=== PATIENT | male | born 1950 | race Caucasian/White ===

== ENCOUNTER 2020-02-24 07:43 | Observation (INO) | payer MEDICARE, SELFPAY ==
[2020-02-24] VITALS (13 sets, daily range): BP systolic 135–170; BP diastolic 71–97; PULSE 66–86; RESP 16–18; TEMP 36.4–37.2; O2SAT 96–100; BMI 26.2
[2020-02-24] MEDS: Lactated Ringers 1,000 ML 125 ML IV (06:05)
[2020-02-24] MEDS: Gabapentin 600 MG Tablet PO (06:05)
[2020-02-24] MEDS: Acetaminophen 500 MG Tablet 1000 MG PO ×3 (06:05→20:41)
[2020-02-24 06:21] LABS: Bedside Glucose 98 mg/dL (70-110)
[2020-02-24 06:39] LABS: Magnesium 1.9 mg/dL (1.6-2.6)
[2020-02-24 06:43] LABS: International Normalized Ratio 0.9; Partial Thromboplast Time 26.6 Seconds (24.1-36.2); Prothrombin Time (Protime)PT. 12.1 SECONDS (11.7-14.9)
--- NOTE | 2020-02-24 07:30 | KNEE_PTH ---
PATIENT: KEVIN EDDY LOC: MS3 U#:[id number] AGE/SX: 70/M ROOM: [facility] [place] RE02/24/[address]: Dr. Alex Huber DO : 1950 BED: 1 DIS: 02/25/2020 SPEC #: [id number] RECD: 02/24/20 09:47 STATUS: ERIC REQ #: [id number] SUHAS: 02/24/20 07:[address]: Alex Huber DEPT: SURGICAL PATHOLOGY RECD BY: Jeana Kan ENTERED: 02/24/20 10:22 SP TYPE: TOTAL KNEE OTHR DR: Marisela Sheridan, STOCK CONTROL CLERK-C Alexander Gonzalez PA-C Tissues: Knee, NOS Procedures: Decalcification bone/plaque Surgery Specimen Level IV HEADER OPERATION: ERAS, total knee replacement robotic arm assist PRE-OP DIAGNOSIS: Primary osteoarthritis right knee TISSUE SUBMITTED: Bone and soft tissue right knee MICROSCOPIC DIAGNOSIS Bone and soft tissue of right knee, total knee resection: Severe degenerative joint disease. Mild synovial hyperplasia with associated mild chronic inflammation. AM:dm 02/27/20 MICROSCOPIC DESCRIPTION Slides are reviewed. GROSS DESCRIPTION Received is one container designated bone and soft tissue right knee. The specimen consists of multiple fragments of wills-yellow bone measuring in aggregate 10 x 10 x 3 cm. Also in the specimen container are multiple fragments of yellow-white soft tissue measuring in aggregate 8 x 9 x 3 cm. A number of bony fragments contain articular surfaces consistent with tibial plateau and femoral condyle and displaying prominent osteophyte formation, eburnation, and bone erosion. Winding Machine Operator sections are submitted in two cassettes as follows: 1 - soft tissue, 2 - bone after decalcification. / SJ:dm 02/24/20 TC:3 [facility]: [id number]
--- NOTE | 2020-02-24 09:28 | PCM.OPRPT ---
Report of Operation Date of Procedure: 02/24/20 Pre-Operative Diagnosis: OA right knee Post-Operative Diagnosis: same Surgery/Procedure Performed:: Right TKR set up and charger: Claude Zamora Type of Anesthesia:: Spinal Anesthesiologist: Jesus Chaudhary Specimen's removed: bone and soft tissue Estimated Blood Loss (mL): 20 cc - Admit VTE Documentation VTE Present on Admission: No VTE Mechan Device Prophylaxis: SCD's, Thigh High YENNY Hose VTE Pharm Prophylaxis ordered?: Yes
[2020-02-24 10:32] LABS: Hematocrit 37.8 % (40-54); Hemoglobin 12.3 g/dL (13.0-16.5); Mean Corp Hgb Conc 32.5 g/dL (32-36); Mean Corpuscular Hgb 30.1 pg (27.0-32.0); Mean Corpuscular Volume 92.4 fL (80-94); Mean Platelet Vol. 8.5 fl (6.2-12.0); Platelet Count 198 K/mm3 (150-450); RBC Distribution Width CV 12.4 % (11.6-14.6); RBC Distribution Width SD 42.3 fl (35.1-43.9); Red Blood Count 4.09 M/mm3 (4.6-6.2); White Blood Count 10.5 K/mm3 (4.4-11.0)
[2020-02-24 10:50] LABS: Anion Gap 5 (5-15); BUN 18 mg/dL (7-18); BUN/Creat Ratio 14.8 RATIO (10-20); Calcium,Total 8.8 mg/dL (8.5-10.1); Chloride 108 mmol/L (98-107); Creatinine, Serum 1.22 mg/dL (0.70-1.30); EST Glomerular Filtration Rate 62 mL/min (>60); Est Glom Filt Rate - Afr Amer 75 mL/min (>60); Estimated Creatinine Clearance 52.95 ml/min; Glucose 135 mg/dL (74-106); Potassium 3.9 mmol/L (3.5-5.1); Sodium Level 141 mmol/L (136-145)
--- NOTE | 2020-02-24 11:10 | RAD_ITS ---
STUDY: X-RAY - RIGHT KNEE REASON FOR EXAM: Male, 70 years old. POST OP TOTAL KNEE TECHNIQUE: 2 view(s) of the knee. COMPARISON: None. FINDINGS: Status post total knee arthroplasty. Surgical hardware intact/well aligned. No acute complications. Postoperative soft tissues with staple line. RAD/Knee 1 or 2 Views IMPRESSION: Uncomplicated right knee arthroplasty Electronically Signed: Kade Leyva DO at 11:56 EST Tel , Service support ,
[2020-02-24] MEDS: proMETHazine 25 MG/ML Syringe 12.5 MG IM (11:56)
[2020-02-24] MEDS: Ferrous Sulfate 325 MG Tablet PO (14:46)
[2020-02-24] MEDS: Aspirin 81 MG TAB.CHEW PO (17:19)
[2020-02-24] MEDS: Senna/Docusate Sodium 1 Tablet 2 TABLET PO (20:41)
[2020-02-24] MEDS: Magnesium Chloride 64 MG Delay Rel.Tablet 128 MG PO (20:41)
[2020-02-24] MEDS: Pantoprazole Sodium 40 MG Tablet PO (20:41)
[2020-02-25 03:55] VITALS: BP 130/76; PULSE 81; RESP 16; TEMP 36.8; O2SAT 98
[2020-02-25] MEDS: Acetaminophen 500 MG Tablet 1000 MG PO ×2 (05:56→14:48)
[2020-02-25 07:08] LABS: Hematocrit 34.4 % (40-54); Hemoglobin 11.4 g/dL (13.0-16.5); Mean Corp Hgb Conc 33.1 g/dL (32-36); Mean Corpuscular Hgb 30.3 pg (27.0-32.0); Mean Corpuscular Volume 91.5 fL (80-94); Mean Platelet Vol. 8.4 fl (6.2-12.0); Platelet Count 193 K/mm3 (150-450); RBC Distribution Width CV 12.6 % (11.6-14.6); RBC Distribution Width SD 42.1 fl (35.1-43.9); Red Blood Count 3.76 M/mm3 (4.6-6.2); White Blood Count 14.6 K/mm3 (4.4-11.0)
[2020-02-25 07:29] LABS: Anion Gap 5 (5-15); BUN 27 mg/dL (7-18); BUN/Creat Ratio 20.8 RATIO (10-20); Calcium,Total 9.1 mg/dL (8.5-10.1); Chloride 108 mmol/L (98-107); EST Glomerular Filtration Rate 58 mL/min (>60); Est Glom Filt Rate - Afr Amer 70 mL/min (>60); Estimated Creatinine Clearance 49.69 ml/min; Glucose 117 mg/dL (74-106); Potassium 3.9 mmol/L (3.5-5.1); Sodium Level 139 mmol/L (136-145)
[2020-02-25] MEDS: Ferrous Sulfate 325 MG Tablet PO (07:59)
[2020-02-25] MEDS: Aspirin 81 MG TAB.CHEW PO (08:00)
[2020-02-25] MEDS: Magnesium Chloride 64 MG Delay Rel.Tablet 128 MG PO (08:00)
[2020-02-25] MEDS: Pantoprazole Sodium 40 MG Tablet PO (08:00)
[2020-02-25] MEDS: Senna/Docusate Sodium 1 Tablet 2 TABLET PO (08:00)
[2020-02-25 08:05] VITALS: BP 153/71; PULSE 85; RESP 18; TEMP 36.9; O2SAT 96
--- NOTE | 2020-02-25 08:08 | PN.ORTHO_ITS ---
Subjective: Pt. doing well. Pain 04/22. No N/T/P. - Physical Exam Vitals/I&O's: Vital Signs Temp Pulse Resp BP Pulse Ox 98.2 F 81 16 130/76 H 98 02/25/20 03:55 02/25/20 03:55 02/25/20 03:55 02/25/20 03:55 02/25/20 03:55 Oxygen Flow Rate (L/min) 6 Oxygen Delivery Method Room Air Weight: 172 lb 9.951 oz Body Mass Index (BMI) 26.2 Intake and Output for Last 24 Hours 02/23/20 02/24/20 02/25/20 23:59 23:59 23:59 Intake Total 2038.5 / 2438.5 1054 / 1054 Output Total 100 / 100 Balance 1938.5 / 2338.5 1054 / 1054 General: Alert, Oriented x3, Cooperative, No apparent distress Extremities: No clubbing, No cyanosis, No edema, Capillary Refill Less than 3 Seconds, No Calf Tenderness Skin: Incision - stable Laboratory Results 02/24/20 10:25: WBC 10.5, RBC 4.09 L, Hgb 12.3 L, Hct 37.8 L, MCV 92.4, MCH 30.1, MCHC 32.5, RDW Std Deviation 42.3, RDW Coeff of Andrez 12.4, Plt Count 198, MPV 8.5 02/24/20 10:25: Sodium 141, Potassium 3.9, Chloride 108 H, Carbon Dioxide 28.0, Anion Gap 5, BUN 18, Creatinine 1.22, Estim Creat Clear Calc 52.95, Est GFR (MDRD) Af Amer 75, Est GFR (MDRD) Non-Af 62, BUN/Creatinine Ratio 14.8, Glucose 135 H, Calcium 8.8 02/25/20 06:59: WBC 14.6 H, RBC 3.76 L, Hgb 11.4 L, Hct 34.4 L, MCV 91.5, MCH 30.3, MCHC 33.1, RDW Std Deviation 42.1, RDW Coeff of Andrez 12.6, Plt Count 193, MPV 8.4 02/25/20 06:59: Sodium 139, Potassium 3.9, Chloride 108 H, Carbon Dioxide 26.0, Anion Gap 5, BUN 27 H, Creatinine 1.30, Estim Creat Clear Calc 49.69, Est GFR (MDRD) Af Amer 70, Est GFR (MDRD) Non-Af 58 L, BUN/Creatinine Ratio 20.8 H, Glucose 117 H, Calcium 9.1 Current Medications Acetaminophen (Acetaminophen 500 Mg Tablet) 1,000 mg PO Q8 [facility] Last Admin: 02/25/20 05:56 Dose: 1,000 mg Documented by: Aspirin (Aspirin 81 Mg Tab.Chew) [facility] Last Admin: 02/25/20 08:00 Dose: 81 mg Documented by: Ferrous Sulfate (Ferrous Sulfate 325 Mg Tablet) 325 [facility] Last Admin: 02/25/20 07:59 Dose: 325 mg Documented by: Magnesium Chloride (Magnesium Chloride 64 Mg Delay Rel.Tablet) 128 mg PO BID [facility] Last Admin: 02/25/20 08:00 Dose: 128 mg Documented by: Ondansetron HCl (Ondansetron 4 Mg/2 Ml Vial) 4 mg IV Q8H PRN PRN PRN Reason: NAUSEA Oxycodone HCl (Oxycodone 5 Mg Tablet) 5 - 10 mg PO Q4H PRN PRN PRN Reason: Pain Score 4-10 Pantoprazole Sodium (Pantoprazole Sodium 40 Mg Tablet) 40 mg PO BID [facility] Last Admin: 02/25/20 08:00 Dose: 40 mg Documented by: Promethazine HCl (Promethazine 25 Mg/Ml Syringe) 12.5 mg IM Q6H PRN PRN; Protocol PRN Reason: NAUSEA/VOMITING Last Admin: 02/24/20 11:56 Dose: 12.5 mg Documented by: Senna/Docusate Sodium (Senna/Docusate Sodium 1 Tablet) 2 tablet PO BID [facility] Last Admin: 02/25/20 08:00 Dose: 2 tablet Documented by: Sodium Chloride (0.9% Saline Lock 10 Ml Syringe) 10 - 40 ml IV UD PRN PRN Reason: SALINE FLUSH Medical Necessity - Tobacco Use Smoking Status: Never smoker Tobacco Use: Non-smoker Assessment/Plan s/p Right TKR Home after PT today
--- NOTE | 2020-02-25 08:11 | PCM.DC.TKR ---
Discharge Diet: No Restrictions Discharge Activity: May Not Drive, May Shower May shower in (days): 2 May resume sexual activity in: No Restrictions Ice area for (Minutes): 30 Weight Bearing Status: Weight bearing as tolerated Elevate: Right Leg Call your doctor if your incision/area has: Continuous Slow Oozing, Sudden Increased Bleeding, Increased Pain/ Swelling, Increased Redness, Foul Smelling Discharge, Swelling at the incision site Call your doctor if you observe: Fever of 101 or Higher, Coldness, Increased Pain, Numbness or Tingling Suture Line Care: Avoid Pulling/Pushing Change Dressing in (Days):: 5 Cleanse incision/area with: Soap & Water Allergies/Adverse Reactions: Allergies Penicillins Allergy (Verified 02/24/20 05:41) Rash Medications to take at Discharge Iron Carbonyl [Feosol] 65 mg PO BID 02/07/20 Magnesium Oxide [Magnesium] 800 mg PO DAILY 02/07/20 Pantoprazole Sodium [Protonix] 40 mg PO BID 02/07/20 Potassium Gluconate [Potassium] 99 mg PO DAILY 02/07/20 Acetaminophen [Tylenol] 1,000 mg PO Q8 tab 02/25/20 Aspirin [Aspirin, Baby] 81 mg PO BIDCM tab.chew 02/25/20 Oxycodone [Oxyir] 5 - 10 mg PO Q4H PRN PRN #60 tab 02/25/20 Senna/Docusate Sodium [Senokot-S] 2 tab PO BID tab 02/25/20 The following prescriptions were given: Oxycodone [Oxyir] 5 - 10 mg PO Q4H PRN PRN #60 tab PRN Reason: Pain Score 4-10 Prescription Printed Primary Care Physician: Marisela Sheridan SOFTWARE DEVELOPER MID LEVEL, SOFTWARE DEVELOPER MID LEVEL-C [Primary Care Provider] - Test Results: Test results from this visit will be discussed in further detail at your follow-up appointment, if applicable. Proposed Discharge Date: 02/25/20
--- NOTE | 2020-02-25 10:35 | CASEMGMT ---
DEENA RILEY Face to Face with patient for initial transition planning/care coordination assessment. DEENA RILEY introduced self and role at [facility]. Patient sitting in chair, alert and oriented. Patient willing to participate in assessment and is able to answer all questions appropriately. Care providers, pharmacy, and demographics verified. Patient wishes to discharge home and is setup with [facility] for outpatient therapy. Patient states he has no further needs or concerns at this time. CM to follow for discharge planning needs that may arise. PCP: Marisela Sheridan NP Specialists: sanjiv Huber Pharmacy: [facility] retail at discharge Insurance: [employer] [facility] Prescription Benefit: yes Living Will/HPOA: none LNOK: Living Arrangements: Patient lives with in a single story home with 1 step to enter the home. Patient states he was independent at home prior to surgery. Transportation: DME/HHC: Patient states he has raised toilet, cane, walker, and grab bars at home. Patient is scheduled for outpatient therapy at [facility] for Monday CADE form completed with patient at this time. DEENA RILEY explained CADE Form, patient signed. Signed CADE form placed in chart. Patient provided with copy of signed CADE form. Disposition Plan: Patient to discharge home with outpatient therapy, family support, and follow-up plans in place. Lisa HAN, RN, CM
--- NOTE | 2020-02-25 14:09 | PHA.DC.MC ---
Pharmacy Service has performed discharge medication reconciliation and counseling for this patient. 1. ACETAMINOPHEN 1000MG PO Q8H 2. ASPIRIN 81MG PO BIDCM 3. OXYCODONE 5-10MG PO Q4H PRN PAIN 4-10 4. SENNA/DOCUSATE 2T PO BID The patient's discharge medication list was reviewed for discrepancies and discrepancies were resolved. Home Medications Iron Carbonyl [Feosol] 65 mg PO BID 02/07/20 Magnesium Oxide [Magnesium] 800 mg PO DAILY 02/07/20 Pantoprazole Sodium [Protonix] 40 mg PO BID 02/07/20 Potassium Gluconate [Potassium] 99 mg PO DAILY 02/07/20 Acetaminophen [Tylenol] 1,000 mg PO Q8 tab 02/25/20 Aspirin [Aspirin, Baby] 81 mg PO BIDCM tab.chew 02/25/20 Oxycodone [Oxyir] 5 - 10 mg PO Q4H PRN PRN #60 tab 02/25/20 Senna/Docusate Sodium [Senokot-S] 2 tab PO BID tab 02/25/20 The patient was counseled on the following discharge medications and changes in medications for homegoing were reviewed. The Reason for Use, instructions for use, and potential side effects were reviewed for all new medications. The patient's questions regarding all of their medications were answered. The patient was able to verbally demonstrate an understanding of their discharge medications.
[2020-02-25 14:45] VITALS: BP 163/82; PULSE 89; RESP 16; TEMP 36.8; O2SAT 97
== END 2020-02-25 15:07 | disposition home or self-care (01) ==
LOC: MS3 02-25 07:14
PROVIDERS: Anesthesiology; Admitting Provider Orthopaedic Surgery; PCP Nurse Practitioner Family; Referring Provider Orthopaedic Surgery; Visit Provider Orthopaedic Surgery
PROC: 0SRC0JZ Replacement of Right Knee Joint with Synthetic Substitute, Open Approach (ICD-10-PCS; CPT 27447; principal; 2020-02-24 07:00)
DX: M17.11 Unilateral primary osteoarthritis, right knee (principal); Z20.828 Contact with and (suspected) exposure to other viral communicable diseases; Z79.899 Other long term (current) drug therapy; H54.7 Unspecified visual loss; D64.9 Anemia, unspecified; K21.9 Gastro-esophageal reflux disease without esophagitis
CPT/HCPCS: 01400; 27447; 64447; S2900; 36415; 73560; 80048; 82962; 83735; 85027; 85610; 85730; 87426; 88305; 88311; 96365; 96366; 96372; 97110; 97116; 97161; 97166; 97530; 97535; 99218; 99251; C1776; C9803; J7120; G0378; G0379; G0463; J2405

== ENCOUNTER → 2023-11-30 | Outpatient (CLI) | payer MEDICARE, SELFPAY ==
[2023-11-30 12:43] LABS: Absolute Lymphocyte Count 1.93 X10^3/uL (0.83-4.51); Basophil# 0.03 X10^3/uL; Basophil% 0.5 % (0-1); Eosinophil# 0.46 X10^3/uL; Eosinophils% 7.5 % (0-5); Hematocrit 41.5 % (40-54); Hemoglobin 13.6 g/dL (13.0-16.5); Lymphocyte # 1.93 X10^3/ul (0.83-4.51); Lymphocyte % 31.6 % (19-41); Mean Corp Hgb Conc 32.8 g/dL (32-36); Mean Corpuscular Hgb 30.2 pg (27.0-32.0); Mean Platelet Vol. 9.4 fl (6.2-12.0); Monocyte# 0.65 X10^3/uL; Monocyte% 10.6 % (0-10); NRBC Flagged by Analyzer 0 % (0-5); Neutrophil # 3.02 X10^3/uL (2.7-7.7); Neutrophil % 49.5 % (47-70); Platelet Count 205 K/mm3 (150-450); RBC Distribution Width CV 12.7 % (11.6-14.6); RBC Distribution Width SD 42.9 fl (35.1-43.9); Red Blood Count 4.51 M/mm3 (4.6-6.2); White Blood Count 6.1 K/mm3 (4.4-11.0)
[2023-11-30 12:51] LABS: Vitamin B12 146 pg/mL (211-911)
[2023-11-30 13:00] LABS: ALB/GLOB Ratio 1.1 RATIO (0.9-2.4); AST(SGOT) 27 U/L (15-37); Alanine Aminotransfer ALT/SGPT 26 U/L (16-61); Albumin, Serum 3.6 g/dL (3.2-5.0); Alkaline Phosphatase 86 U/L (45-117); Anion Gap 5 (5-15); BUN 29 mg/dL (7-18); BUN/Creat Ratio 21.5 RATIO (10-20); Chloride 110 mmol/L (98-107); Cholesterol 158 mg/dL (200); Creatinine, Serum 1.35 mg/dL (0.70-1.30); EST Glomerular Filtration Rate 55 mL/min (>60); Est Glom Filt Rate - Afr Amer 66 mL/min (>60); Ferritin 249 ng/mL (26-388); Globulin 3.4 g/dL (2.2-4.2); Glucose 102 mg/dL (74-106); High Density Lipoprotein 49 mg/dL; Iron 75 ug/dL (65-175); Iron Binding Capacity,Total 287 ug/dL (250-450); Potassium 5.1 mmol/L (3.5-5.1); Sodium Level 141 mmol/L (136-145); Triglycerides 96 mg/dL; Very Low Density Lipoprotein 19 mg/dL (5-40)
== END | disposition home or self-care (01) ==
LOC: MFPLAB 10:30
PROVIDERS: PCP Family Medicine; Visit Provider Family Medicine
DX: I10 Essential (primary) hypertension (principal); E78.5 Hyperlipidemia, unspecified; E53.8 Deficiency of other specified B group vitamins; E61.1 Iron deficiency
CPT/HCPCS: 36415; 80053; 80061; 82607; 82728; 82746; 83540; 83550; 83735; 84443; 85025

== ENCOUNTER → 2024-01-25 | Outpatient (CLI) | payer MEDICARE, SELFPAY ==
[2024-01-25 12:19] LABS: Absolute Lymphocyte Count 1.99 X10^3/uL (0.83-4.51); Absolute Neutrophil Count 3.4 X10^3/uL (2.0-7.7); Basophil# 0.05 X10^3/uL; Basophil% 0.8 % (0-1); Eosinophil# 0.52 X10^3/uL; Eosinophils% 7.9 % (0-5); Hematocrit 41.9 % (40-54); Hemoglobin 13.9 g/dL (13.0-16.5); Lymphocyte # 1.99 X10^3/ul (0.83-4.51); Lymphocyte % 30.3 % (19-41); Mean Corp Hgb Conc 33.2 g/dL (32-36); Mean Corpuscular Hgb 30.5 pg (27.0-32.0); Mean Corpuscular Volume 91.9 fL (80-94); Mean Platelet Vol. 9.1 fl (6.2-12.0); Monocyte# 0.65 X10^3/uL; Monocyte% 9.9 % (0-10); NRBC Flagged by Analyzer 0 % (0-5); Neutrophil # 3.35 X10^3/uL (2.7-7.7); Neutrophil % 50.9 % (47-70); Platelet Count 216 K/mm3 (150-450); RBC Distribution Width CV 12.8 % (11.6-14.6); RBC Distribution Width SD 42.8 fl (35.1-43.9); Red Blood Count 4.56 M/mm3 (4.6-6.2); White Blood Count 6.6 K/mm3 (4.4-11.0)
[2024-01-25 13:10] LABS: Anion Gap 4 (5-15); BUN 22 mg/dL (7-18); BUN/Creat Ratio 18.5 RATIO (10-20); Calcium,Total 8.9 mg/dL (8.5-10.1); Chloride 110 mmol/L (98-107); Creatinine, Serum 1.19 mg/dL (0.70-1.30); EST Glomerular Filtration Rate 63 mL/min (>60); Est Glom Filt Rate - Afr Amer 76 mL/min (>60); Ferritin 237 ng/mL (26-388); Glucose 108 mg/dL (74-106); Iron 65 ug/dL (65-175); Iron Binding Capacity,Total 303 ug/dL (250-450); Sodium Level 143 mmol/L (136-145)
[2024-01-30 16:45] LABS: Hemoglobin A1c 5.7 % (3.8-5.6)
== END | disposition home or self-care (01) ==
LOC: MFPLAB 10:42
PROVIDERS: PCP Family Medicine; Referring Provider Family Medicine; Visit Provider Family Medicine
DX: E61.1 Iron deficiency (principal); R94.4 Abnormal results of kidney function studies; R73.09 Other abnormal glucose
CPT/HCPCS: 36415; 80048; 82728; 83036; 83540; 83550; 85025

== ENCOUNTER → 2024-03-22 | Outpatient (CLI) | payer MEDICARE, SELFPAY ==
[2024-03-22 13:50] LABS: Bacteria 0 SEEN /hpf (None Seen); Mucous, Urine 0 SEEN /hpf (<or=2+); Red Blood Cells-Urine 0 SEEN /hpf (0-5); Squamous Epithelial Cells - UA 0 SEEN /hpf (0-5); White Blood Cells 0 SEEN /hpf (0-5)
[2024-03-22 17:57] LABS: Absolute Lymphocyte Count 2.04 X10^3/uL (0.83-4.51); Absolute Neutrophil Count 3.4 X10^3/uL (2.0-7.7); Basophil# 0.05 X10^3/uL; Basophil% 0.7 % (0-1); Eosinophil# 0.43 X10^3/uL; Eosinophils% 6.4 % (0-5); Hemoglobin 14.6 g/dL (13.0-16.5); Hemoglobin A1c 5.4 % (3.8-5.6); Lymphocyte # 2.04 X10^3/ul (0.83-4.51); Lymphocyte % 30.4 % (19-41); Mean Corp Hgb Conc 32.4 g/dL (32-36); Mean Corpuscular Volume 92.4 fL (80-94); Mean Platelet Vol. 9.6 fl (6.2-12.0); Monocyte# 0.75 X10^3/uL; Monocyte% 11.2 % (0-10); NRBC Flagged by Analyzer 0 % (0-5); Neutrophil # 3.43 X10^3/uL (2.7-7.7); Neutrophil % 51.2 % (47-70); Platelet Count 210 K/mm3 (150-450); RBC Distribution Width CV 12.5 % (11.6-14.6); RBC Distribution Width SD 42.7 fl (35.1-43.9); Red Blood Count 4.87 M/mm3 (4.6-6.2); White Blood Count 6.7 K/mm3 (4.4-11.0)
[2024-03-22 17:58] LABS: AST(SGOT) 23 U/L (15-37); Alanine Aminotransfer ALT/SGPT 32 U/L (16-61); Albumin, Serum 3.8 g/dL (3.2-5.0); Alkaline Phosphatase 87 U/L (45-117); Anion Gap 4 (5-15); BUN 25 mg/dL (7-18); BUN/Creat Ratio 20.7 RATIO (10-20); Calcium,Total 9.3 mg/dL (8.5-10.1); Chloride 108 mmol/L (98-107); Cholesterol 155 mg/dL (200); Creatinine, Serum 1.21 mg/dL (0.70-1.30); EST Glomerular Filtration Rate 62 mL/min (>60); Est Glom Filt Rate - Afr Amer 75 mL/min (>60); Ferritin 210 ng/mL (26-388); Glucose 77 mg/dL (74-106); High Density Lipoprotein 52 mg/dL; Iron 71 ug/dL (65-175); Magnesium 2.3 mg/dL (1.6-2.6); Protein, Total 7.8 g/dL (6.4-8.2); Sodium Level 138 mmol/L (136-145); Triglycerides 92 mg/dL; Very Low Density Lipoprotein 18 mg/dL (5-40)
[2024-03-22 17:59] LABS: Vitamin B12 751 pg/mL (211-911); Vitamin D,25 Hydroxy 34.8 ng/mL
[2024-03-22 18:00] LABS: PTHIN 92.2 pg/mL (18.4-80.1)
[2024-03-22 18:31] LABS: Color, Urine Yellow (Yellow); Glucose, Dipstick Normal (Normal); Ketone-Dipstick Negative (Negative); Leukocyte Esterase-Dipstick Negative /ul (Negative); Nitrite-Dipstick Negative (Negative); Occult Blood-Urine Negative /ul (Negative); Protein-Dipstick Negative (Negative); Specific Gravity, Urine 1.015 (1.002-1.030); Urine Bilirubin Dipstick Negative (Negative); Urine Clarity Clear (Clear); Urine Urobilinogen Normal (Normal)
[2024-03-22 18:40] LABS: Protein, Urine (Random) 15.4 mg/dL (<11.9); Protein:Creat Ratio 114 mg/g CRE (0-200)
== END | disposition home or self-care (01) ==
PROVIDERS: PCP Family Medicine; Referring Provider Family Medicine; Visit Provider Family Medicine
DX: I12.9 Hypertensive chronic kidney disease with stage 1 through stage 4 chronic kidney disease, or unspecified chronic kidney disease (principal); N18.30 Chronic kidney disease, stage 3 unspecified; R73.02 Impaired glucose tolerance (oral); E78.5 Hyperlipidemia, unspecified; E61.1 Iron deficiency
CPT/HCPCS: 36415; 80053; 80061; 81001; 82306; 82570; 82607; 82728; 83036; 83540; 83735; 83970; 84156; 85025

== ENCOUNTER → 2024-07-12 | Outpatient (CLI) | payer MEDICARE, SELFPAY ==
[2024-07-12 12:32] LABS: PSA,Total - Annual Screen 2.77 ng/mL (0.02-4.00)
== END | disposition home or self-care (01) ==
LOC: MTLAB 10:05
PROVIDERS: PCP Family Medicine; Referring Provider Family Medicine; Visit Provider Family Medicine
DX: Z12.5 Encounter for screening for malignant neoplasm of prostate (principal); Z80.42 Family history of malignant neoplasm of prostate
CPT/HCPCS: 36415; 84153; G0103

== ENCOUNTER → 2024-11-15 | Outpatient (CLI) | payer MEDICARE, SELFPAY ==
[2024-11-15 10:04] LABS: Mucous, Urine 0 SEEN /hpf (<or=2+); Squamous Epithelial Cells - UA 0 SEEN /hpf (0-5)
[2024-11-15 12:51] LABS: Glucose, Dipstick Normal (Normal); Ketone-Dipstick Negative (Negative); Leukocyte Esterase-Dipstick Negative /ul (Negative); Nitrite-Dipstick Negative (Negative); Occult Blood-Urine Negative /ul (Negative); Protein-Dipstick 30 mg/dl (Negative); Specific Gravity, Urine 1.020 (1.002-1.030); Urine Bilirubin Dipstick Negative (Negative)
[2024-11-15 12:52] LABS: Hematocrit 41.8 % (40-54); Hemoglobin 13.9 g/dL (13.0-16.5); Immature Granulocytes Count 0.020 X10^3/uL (0.0-0.0); Mean Corp Hgb Conc 33.3 g/dL (32-36); Mean Corpuscular Volume 91.7 fL (80-94); Mean Platelet Vol. 9.4 fl (6.2-12.0); NRBC Flagged by Analyzer 0 % (0-5); Platelet Count 214 K/mm3 (150-450); RBC Distribution Width CV 13.0 % (11.6-14.6); RBC Distribution Width SD 43.4 fl (35.1-43.9); Red Blood Count 4.56 M/mm3 (4.6-6.2); White Blood Count 8.2 K/mm3 (4.4-11.0)
[2024-11-15 12:56] LABS: Color, Urine Yellow (Yellow)
[2024-11-15 13:05] LABS: Red Blood Cells-Urine 0-5 SEEN /hpf (0-5)
[2024-11-15 13:19] LABS: Creatinine, Urine (random) 194.00 mg/dL (39.00-259.00); Protein, Urine (Random) 18.2 mg/dL (0.0-12.0); Protein:Creat Ratio 94 mg/g CRE (0-200)
[2024-11-15 13:39] LABS: AST(SGOT) 26 U/L (<=37); Alanine Aminotransfer ALT/SGPT 21 U/L (<=46); Albumin, Serum 4.1 g/dL (3.4-4.8); Alkaline Phosphatase 77 U/L (40-129); Anion Gap 11 (5-15); BUN 26 mg/dL (4-19); BUN/Creat Ratio 19.5 RATIO (10-20); Calcium,Total 9.6 mg/dL (7.6-11.0); Carbon Dioxide 23.9 mmol/L (21.0-32.0); Chloride 107 mmol/L (98-108); Cholesterol 157 mg/dL (<=200); Globulin 2.8 g/dL (2.2-4.2); Glucose 97 mg/dL (70-99); Low Density Lipoprotein Calc. 85 mg/dL; Potassium 4.5 mmol/L (3.3-5.1); Triglycerides 140 mg/dL; Very Low Density Lipoprotein 28 mg/dL (5-40); Vitamin B12 1042 pg/mL (180-914); cholesterol:hdl ratio screen 3.54
[2024-11-15 13:46] LABS: PTHIN 45 pg/mL (11-61)
== END | disposition home or self-care (01) ==
LOC: MFPLAB 09:59
PROVIDERS: PCP Family Medicine; Visit Provider Family Medicine
DX: I12.9 Hypertensive chronic kidney disease with stage 1 through stage 4 chronic kidney disease, or unspecified chronic kidney disease (principal); E53.8 Deficiency of other specified B group vitamins; N18.9 Chronic kidney disease, unspecified; E21.3 Hyperparathyroidism, unspecified; R73.02 Impaired glucose tolerance (oral); E78.5 Hyperlipidemia, unspecified
CPT/HCPCS: 36415; 80053; 80061; 81001; 82570; 82607; 83036; 83970; 84156; 84443; 85025